=== PATIENT | male | born 1980 | race Caucasian/White ===

== ENCOUNTER 2020-03-06 20:26 | Emergency (ER) | payer SELFPAY ==
[~2020-03-06] VITALS: Ht 170.2 cm; Wt 84.8 kg
[2020-03-06 20:35] VITALS: BP 142/83
--- NOTE | 2020-03-06 20:39 | NUR ---
PT TRAIGED AND BACK TO LOBBY.
--- NOTE | 2020-03-06 21:04 | NUR ---
PT AMBULATED TO BED 05
--- NOTE | 2020-03-06 21:21 | NUR ---
39 Y/O M PRESENTS TO ED C/O RT ABD PAIN X 4 DAYS AGO. PT ADMITS TO NAUSEA AND DIARRHEA X 1 DAY. PT STATES PAIN JUST STARTED SUDDENLY. PT DESCRIBES PAIN TO BE THROBBING, INTERMITTENT PAIN. ABD SOFT, AND NON-TENDER. RR EVEN AND UNLABORED. LUNG SOUNDS CLEAR UPON AUSCULTATION. BED IN LOWEST POSITION, SIDE RAIL UP X1. WILL CONTINUE TO MONITOR. MHX: APPENDECTOMY ALLERGIES: NKA
[2020-03-06 22:01] LABS: BASOPHILS # (AUTO) 0.1 K/uL (0.00-0.22); BASOPHILS % (AUTO) 0.7 % (0.0-2.0); EOSINOPHILS # (AUTO) 0.2 K/uL (0-0.4); EOSINOPHILS % (AUTO) 1.8 % (0.0-4.0); HEMATOCRIT 43.7 % (36-52); HEMOGLOBIN 14.8 g/dL (12.0-18.0); LYMPHOCYTES # (AUTO) 2.3 K/uL (2.0-11.5); LYMPHOCYTES % (AUTO) 25.8 % (20.5-51.1); MEAN CORPUSCULAR HEMOGLOBIN 33 pg (27-31); MEAN CORPUSCULAR HGB CONC 34 g/dL (33-37); MEAN CORPUSCULAR VOLUME 96.3 fL (80-94); MONOCYTES # (AUTO) 0.9 K/uL (0.8-1.0); MONOCYTES % (AUTO) 10.4 % (1.7-9.3); NEUTROPHILS # (AUTO) 5.6 K/uL (1.8-7.7); NEUTROPHILS % (AUTO) 61.3 % (42.2-75.2); PLATELET COUNT (AUTO) 184 K/uL (140-450); RED BLOOD CELL COUNT(AUTO) 4.54 MIL/uL (4.20-6.10); WHITE BLOOD COUNT (AUTO) 9.1 K/uL (4.8-10.8)
[2020-03-06 22:22] LABS: ALBUMIN 3.7 g/dL (3.4-5.0); CARBON DIOXIDE 30.4 mmol/L (21-32); POTASSIUM 3.4 mmol/L (3.5-5.1); TOTAL BILIRUBIN 0.5 mg/dL (0.0-1.0)
[2020-03-06 22:23] LABS: PROTHROMBIN TIME 9.9 secs (10.8-13.4)
[2020-03-06 22:24] LABS: ACETAMINOPHEN < 0.5 ug/ml (10-30)
--- NOTE | 2020-03-06 22:30 | NUR ---
PT STATES HIS PAIN IS 9/10 AND IS REQUESTING PAIN MEDICATION. SULMAD MADE AWARE.
[2020-03-06] MEDS ORDERED: ONDANSETRON 4 MG/2 ML VIAL IVP ONE (22:35)
[2020-03-06] MEDS ORDERED: KETOROLAC 30 MG/ML VIAL IVP ONE (22:35)
[2020-03-06 22:50] LABS: BARBITURATE, URINE NEGATIVE ng/ml (NEG <=200); BENZODIAZEPINE, URINE NEGATIVE ng/mL (NEG <=200); CANNABINOID, URINE NEGATIVE ng/mL (NEG <=50); COCAINE, URINE NEGATIVE ng/mL (NEG <=300); OPIATE, URINE NEGATIVE ng/mL (NEG <=2000); PHENCYCLIDINE SCREEN,URINE NEGATIVE ng/mL (NEG <=25)
[2020-03-06 23:15] VITALS: BP 142/83
--- NOTE | 2020-03-06 23:15 | NUR ---
Patient discharged with v/s stable. Written and verbal after care instructions given and explained. Patient alert, oriented and verbalized understanding of instructions. Ambulatory with steady gait. All questions addressed prior to discharge. ID band removed. Patient advised to follow up with PMD. Rx of MOTRIN, ZOFRAN given. Patient educated on indication of medication including possible reaction and side effects. Opportunity to ask questions provided and answered.
== END 2020-03-06 23:15 | disposition home or self-care (01) ==
LOC: MED 20:26
DX: K76.89 Other specified diseases of liver (principal)
CPT/HCPCS: 36415; 74176; 80053; 80305; 81002; 85025; 85610; 85730; 96374; 96375; 99285; G0480; G0482; J1885; J2405

== ENCOUNTER 2023-01-27 19:29 | Emergency (ER) | payer OTHER ==
[~2023-01-27] VITALS: Ht 170.2 cm; Wt 83.9 kg
[2023-01-27 19:32] VITALS: BP 114/62
--- NOTE | 2023-01-27 19:32 | NUR ---
PT KIMMY [employer]OEMAKER, TAKEN TO CHAIR
--- NOTE | 2023-01-27 19:42 | NUR ---
Patient being evaluated by physician
[2023-01-27 19:50] VITALS: BP 114/62
--- NOTE | 2023-01-27 19:50 | NUR ---
PATIENT BIB [facility]. PATIENT EXAMINED BY DR. JIMENEZ. PATIENT MEDICALLY CLEARED AND RELEASED IN CUSTODY IN STABLE CONDITION. ORIGINAL PRE-BOOK FORM GIVEN TO OFFICER YURY.
== END 2023-01-27 19:50 | disposition home or self-care (01) ==
LOC: MED 19:29
DX: Z02.89 Encounter for other administrative examinations (principal); V49.88XA Car occupant (driver) (passenger) injured in other specified transport accidents, initial encounter; Y93.89 Activity, other specified; Y92.89 Other specified places as the place of occurrence of the external cause; Y99.8 Other external cause status
CPT/HCPCS: 99283